=== PATIENT | male | born 1965 | race Caucasian/White ===

== ENCOUNTER → 2023-12-31 12:00 | Outpatient (REF) | payer BC, SELFPAY | LOC: DHSLP 12:00 | PROVIDERS: ATTENDING PHYSICIAN Internal Medicine Critical Care Medicine; FAMILY PHYSICIAN Student in an Organized Health Care Education/Training Program | DX: G47.19 Other hypersomnia (principal); R06.83 Snoring | CPT/HCPCS: 95800 ==

== ENCOUNTER → 2025-03-30 13:54 | Outpatient (REF) | payer SELFPAY | LOC: HWRAD 13:54 | PROVIDERS: ATTENDING PHYSICIAN Student in an Organized Health Care Education/Training Program | DX: Z00.00 Encounter for general adult medical examination without abnormal findings (principal); I10 Essential (primary) hypertension; Z82.3 Family history of stroke | CPT/HCPCS: 75571 ==

== ENCOUNTER → 2025-04-11 06:32 | Outpatient (REF) | payer BC, SELFPAY | LOC: RAD 06:32 | PROVIDERS: ATTENDING PHYSICIAN Student in an Organized Health Care Education/Training Program | DX: Z00.00 Encounter for general adult medical examination without abnormal findings (principal); I10 Essential (primary) hypertension; Z82.3 Family history of stroke | CPT/HCPCS: 93880 ==